=== PATIENT | female | born 1960 | race Caucasian/White ===

== ENCOUNTER 2018-06-26 07:04 | Day surgery (SDC) | payer SELFPAY ==
--- NOTE | 2018-06-20 13:57 | HP ---
PREOPERATIVE HISTORY AND PHYSICAL: DATE OF SURGERY/ADMISSION: 06/26/18 DATE OF OFFICE VISIT/ENCOUNTER: 06/18/18 ATTENDING SURGEON: Oly Hawkins MD * (DICTATED BY LALITA ARMENDARIZ) PROCEDURE: Right long finger trigger release. CHIEF COMPLAINT: Right long finger triggering. HISTORY OF PRESENT ILLNESS: This is a 58-year-old female who has a right long finger trigger finger. This started when she sustained injury at work in March 2018. She works at [employer] and she was trying to open a box that was very heavily glued and she injured her right middle finger. Since then, she has had trouble with flexion and extension of the finger. She has failed conservative treatment including physical therapy. Her finger locks in flexion. She is interested in pursuing surgical intervention for this problem. She denies any other injury. PAST MEDICAL HISTORY: Unremarkable. PAST SURGICAL HISTORY: 1. Right ring finger trigger release. 2. Left wrist cyst excision. CURRENT MEDICATIONS: Ibuprofen 800 mg p.r.n. ALLERGIES: No known drug allergies. FAMILY MEDICAL HISTORY: Heart disease, abdominal aneurysm, diabetes, cancer. SOCIAL HISTORY: The patient is employed at [employer] in [employer]. She is a current smoker. She smokes half a pack a day and has done so for 40 years. She denies recreational drug use. She drinks alcohol on occasion. REVIEW OF SYSTEMS: Negative for general, cephalic, cardiovascular. Respiratory : Positive for congestion. Negative for GI, , other musculoskeletal, integumentary, endocrine, neurologic, and hematologic symptoms. Infectious Disease is negative for history of MRSA, hepatitis C, HIV. PHYSICAL EXAMINATION GENERAL: Well-developed, well-nourished 58-year-old female, in no acute distress. VITAL SIGNS: Height 5 feet 2 inches, weight 100 pounds. Pulse rate 89, blood pressure 126/70. HEENT: Normocephalic, atraumatic. Pupils are equal, round, and reactive to light and accommodation. Extraocular movements are intact. Throat is clear. NECK: Supple. No palpable lymph nodes. PULMONARY: Lungs are clear to auscultation bilaterally. No wheezes, rales, or rhonchi. CARDIOVASCULAR: Regular rate and rhythm. S1, S2. No murmurs, rubs or gallops. No edema. ABDOMEN: Positive bowel sounds, soft, nontender. NEUROLOGICAL: Alert and oriented x3. Cranial nerves II through XII are intact. Sensation is intact to light touch. MUSCULOSKELETAL: On exam of her right hand, she has tenderness to palpation at the A1 gaby of the long finger. She holds the finger in a flexed position with attempted full extension. She has increased pain when attempting to make a fist. Skin is intact. Neurovascular function is intact. IMPRESSION: Right long finger trigger finger resulting from traumatic work injury. PLAN: The patient is scheduled to undergo a right long finger trigger finger release with Dr. Hawkins on 06/26/18. She will return to the office 10 days postop for followup and suture removal. A prescription for Ultracet was e- scribed to the patient's pharmacy for postoperative pain management. LALITA ARMENDARIZ [id number]/[facility] #: [id number] MTDNay
[~2018-06-26 07:04] MED LIST: Buffered Lidocaine 0.9% SYRIN* 5 ML/SYR SYRINGE INTRADERM ONE; Lactated Ringers 1000 ML Bag* 1,000 ML IV SCH
[2018-06-26] MEDS ORDERED: Lidocaine 1% INJ* 10 MG/ML 30 ML SDV ONE (07:24)
[2018-06-26] MEDS ORDERED: Naloxone* 0.4 MG/ML 1 ML VIAL IV PRN (07:47)
[2018-06-26] MEDS ORDERED: Propofol* 10 MG/ML 20 ML BTL ONE (08:16)
[2018-06-26] MEDS ORDERED: Lidocaine 2% PF * 5 ML VIAL ONE (08:16)
[2018-06-26 08:48] VITALS: BP 127/73
--- NOTE | 2018-06-26 12:12 | OP ---
DATE OF OPERATION: 06/26/18 [facility] DATE OF : 62 SURGEON: Oly Hawkins MD. FLIGHT ENGINEER HELICOPTER: LALITA Green. ANESTHESIA: Local MAC PRE-OP DIAGNOSIS: Right middle finger trigger finger. POST-OP DIAGNOSIS: Right middle finger trigger finger. OPERATIVE PROCEDURE: Right middle finger trigger release. ESTIMATED BLOOD LOSS: Zero. TOURNIQUET TIME: About 5 minutes. INDICATIONS FOR PROCEDURE: Windy is a 58-year-old female with painful locking of her right middle finger. She presents for trigger release. DESCRIPTION OF PROCEDURE: The patient was brought to the operating room, was given a sedation anesthetic and a local infiltration 10 cc of 1% plain lidocaine overlying the A1 gaby of the right middle finger. The skin of her right upper extremity was prepped and draped in usual sterile fashion. The hand and forearm were exsanguinated. The tourniquet elevated to 250 mmHg. A transverse incision was made centered over the A1 gaby at the middle finger. We dissected bluntly through the subcutaneous tissue down to the middle finger A1 gaby. The gaby was incised longitudinally completely releasing the flexor tendons, which were in good condition. The wound was irrigated and the skin edges reapproximated with 4-0 nylon suture. The wound was dressed with Xeroform, 4x4, Webril and an Jake wrap. The patient tolerated the procedure well , was brought to the recovery room in good condition. [id number]/[facility] #: [id number] MTDD
== END 2018-06-26 09:04 | disposition home or self-care (01) ==
LOC: OREAST 07:04
PROVIDERS: ATTEND Orthopaedic Surgery
DX: M65.331 Trigger finger, right middle finger (principal); F17.210 Nicotine dependence, cigarettes, uncomplicated
CPT/HCPCS: J2704